=== PATIENT | male | born 1955 | race Caucasian/White ===

== ENCOUNTER → 2018-02-13 15:19 | Outpatient (CLI) | payer OTHER, SELFPAY ==
[2018-02-13 17:12] LABS: Anion Gap 7 (5-15); BUN 24 mg/dL (7-18); BUN/Creat Ratio 16.1 RATIO (10-20); Calcium,Total 8.6 mg/dL (8.5-10.1); Chloride 109 mmol/L (98-107); Creatinine, Serum 1.49 mg/dL (0.70-1.30); EST Glomerular Filtration Rate 51 mL/min (>60); Est Glom Filt Rate - Afr Amer 62 mL/min (>60); Glucose 73 mg/dL (74-106); Sodium Level 143 mmol/L (136-145)
[2018-02-13 17:21] LABS: Hemoglobin A1c 5.6 % (4.2-6.3)
== END ==
PROVIDERS: Family Provider Family Medicine; PCP Family Medicine; Visit Provider Nurse Practitioner Family
DX: I10 Essential (primary) hypertension (principal); R73.03 Prediabetes
CPT/HCPCS: 36415; 80048; 83036

== ENCOUNTER → 2018-03-13 16:57 | Outpatient (CLI) | payer OTHER, SELFPAY ==
[2018-03-13 17:59] LABS: Anion Gap 5 (5-15); BUN 15 mg/dL (7-18); BUN/Creat Ratio 10.7 RATIO (10-20); Calcium,Total 8.6 mg/dL (8.5-10.1); Chloride 109 mmol/L (98-107); EST Glomerular Filtration Rate 55 mL/min (>60); Est Glom Filt Rate - Afr Amer 66 mL/min (>60); Glucose 64 mg/dL (74-106); Potassium 3.9 mmol/L (3.5-5.1); Sodium Level 141 mmol/L (136-145)
== END ==
PROVIDERS: Family Provider Family Medicine; PCP Family Medicine; Visit Provider Nurse Practitioner Family
DX: I10 Essential (primary) hypertension (principal); R79.89 Other specified abnormal findings of blood chemistry
CPT/HCPCS: 36415; 80048

== ENCOUNTER → 2019-03-19 | Outpatient (CLI) | payer OTHER, SELFPAY ==
[2019-03-19 10:58] LABS: Anion Gap 5 (5-15); BUN 10 mg/dL (7-18); BUN/Creat Ratio 7.1 RATIO (10-20); Calcium,Total 8.4 mg/dL (8.5-10.1); Chloride 109 mmol/L (98-107); Cholesterol 140 mg/dL (200); EST Glomerular Filtration Rate 55 mL/min (>60); Est Glom Filt Rate - Afr Amer 66 mL/min (>60); Glucose 113 mg/dL (74-106); High Density Lipoprotein 25 mg/dL; Potassium 3.9 mmol/L (3.5-5.1); Sodium Level 138 mmol/L (136-145); Triglycerides 256 mg/dL; Very Low Density Lipoprotein 51 mg/dL (5-40)
[2019-03-19 11:18] LABS: Hemoglobin A1c 6.2 % (4.2-6.3)
== END | disposition home or self-care (01) ==
LOC: LAB.FUTURE 09:08
PROVIDERS: Family Provider Family Medicine; PCP Family Medicine; Referring Provider Nurse Practitioner Family; Visit Provider Nurse Practitioner Family
DX: I10 Essential (primary) hypertension (principal); R73.03 Prediabetes; E66.01 Morbid (severe) obesity due to excess calories
CPT/HCPCS: 36415; 80048; 80061; 83036

== ENCOUNTER → 2019-08-18 08:35 | Outpatient (CLI) | payer OTHER, SELFPAY ==
[2019-08-18 10:37] LABS: Hematocrit 43.7 % (40-54); Hemoglobin 15.2 g/dL (13.0-16.5); Mean Corp Hgb Conc 34.8 g/dL (32-36); Mean Corpuscular Hgb 31.8 pg (27.0-32.0); Mean Corpuscular Volume 91.4 fL (80-94); Mean Platelet Vol. 10.6 fl (6.2-12.0); Platelet Count 206 K/mm3 (150-450); RBC Distribution Width CV 12.3 % (11.6-14.6); RBC Distribution Width SD 41.1 fl (35.1-43.9); Red Blood Count 4.78 M/mm3 (4.6-6.2); White Blood Count 6.7 K/mm3 (4.4-11.0)
[2019-08-18 11:02] LABS: Cholesterol 183 mg/dL (200); High Density Lipoprotein 27 mg/dL; Triglycerides 235 mg/dL; Very Low Density Lipoprotein 47 mg/dL (5-40)
== END ==
LOC: LABSPEC 08:41 → LAB 08:55
PROVIDERS: Family Provider Family Medicine; PCP Family Medicine; Referring Provider Family Medicine; Visit Provider Family Medicine
DX: Z79.899 Other long term (current) drug therapy (principal); E66.01 Morbid (severe) obesity due to excess calories
CPT/HCPCS: 36415; 80061; 85027

== ENCOUNTER → 2020-03-24 | Outpatient (CLI) | payer OTHER, SELFPAY ==
[2020-03-24 08:20] LABS: Hemoglobin A1c 5.8 % (3.8-5.6)
[2020-03-24 08:22] LABS: AST(SGOT) 15 U/L (15-37); Alanine Aminotransfer ALT/SGPT 24 U/L (16-61); Albumin, Serum 3.7 g/dL (3.2-5.0); Alkaline Phosphatase 113 U/L (45-117); Anion Gap 4 (5-15); BUN 16 mg/dL (7-18); BUN/Creat Ratio 10.3 RATIO (10-20); Calcium,Total 8.4 mg/dL (8.5-10.1); Chloride 110 mmol/L (98-107); Cholesterol 162 mg/dL (200); Creatinine, Serum 1.55 mg/dL (0.70-1.30); EST Glomerular Filtration Rate 48 mL/min (>60); Est Glom Filt Rate - Afr Amer 59 mL/min (>60); Globulin 3.8 g/dL (2.2-4.2); Glucose 109 mg/dL (74-106); High Density Lipoprotein 25 mg/dL; Protein, Total 7.5 g/dL (6.4-8.2); Sodium Level 141 mmol/L (136-145); Triglycerides 207 mg/dL; Very Low Density Lipoprotein 41 mg/dL (5-40)
== END | disposition home or self-care (01) ==
LOC: LAB 07:41
PROVIDERS: PCP Family Medicine; Referring Provider Family Medicine; Visit Provider Family Medicine
DX: R73.03 Prediabetes (principal); E78.5 Hyperlipidemia, unspecified
CPT/HCPCS: 36415; 80053; 80061; 83036

== ENCOUNTER 2020-06-10 17:17 | Observation (INO) | payer OTHER, SELFPAY ==
[2020-06-10] VITALS (11 sets, daily range): BP systolic 118–166; BP diastolic 57–98; PULSE 54–69; RESP 14–19; TEMP 36.4–37.1; O2SAT 98–100; BMI 38.2; BMI 40.4; BMI 40.0
--- NOTE | 2020-06-10 17:24 | EKG12_ITS ---
Test Reason : NEURO SYMPTOMS Blood Pressure : / mmHG Vent. Rate : 056 BPM Atrial Rate : 056 BPM P-R Int : 166 ms QRS Dur : 078 ms QT Int : 438 ms P-R-T Axes : 052 -07 025 degrees QTc Int : 422 ms Sinus bradycardia Otherwise normal ECG Confirmed by TIMOTHY GABRIEL, CODY ([id number]), web content editor RACIEL YEAGER ([id number]) on 06/15/2020 1:45:55 PM Referred By: MAINOR Confirmed By:MARNIE AGUIRRE MD
--- NOTE | 2020-06-10 17:24 | CT_ITS ---
STUDY: CT BRAIN WITHOUT CONTRAST REASON FOR EXAM: Male, 65 years old. Stroke trouble with balance left-sided weakness RADIATION DOSAGE (If Supplied By Facility): CTDIvol = ( 44.99 ) mGy, DLP = ( 846.73 ) mGycm TECHNIQUE: Transaxial CT imaging of the brain was performed without administration of intravenous contrast material. Individualized dose optimization techniques were used for this CT. COMPARISON: For June 2011 FINDINGS: There is a small elongated hypodensity in the right frontal parasagittal posterior subcortical white matter, too small to reliably characterize. Remainder of the brain is intact. There is no mass effect, acute intracranial hemorrhage, extra parenchymal fluid collections, hydrocephalus or herniation. The skull is intact. Right maxillary sinus is opacified. CT/Brain/Head without Contrast IMPRESSION: 1. Right frontal subcortical white matter hypodensity, probably ischemia, unknown age. This can be acute or chronic. Electronically Signed: Eleni Carter, at 18:26 EDT Tel , Service support ,
--- NOTE | 2020-06-10 17:24 | CT_ITS ---
STUDY: CTA HEAD AND NECK WITH CONTRAST REASON FOR EXAM: Male, 65 years old. LT SIDED WEAKNESS,TROUBLE WITH BALANCE X 3 DAYS -- HX:HTN RADIATION DOSAGE (If Supplied By Facility): CTDIvol = ( 24.77 ) mGy, DLP = ( 795.17 ) mGycm TECHNIQUE: CT angiography was performed with a multi-detector CT scanner. Data acquisition was obtained from the skull base through the vertex following intravenous administration of IV 100mL Isovue-370. MIP images were reconstructed from the axial data set. Post-processing of the angiographic images was performed, with multiplanar reformation and 3D reconstruction. Individualized dose optimization techniques were used for this CT. COMPARISON: No relevant priors. FINDINGS: Normal bilateral petrous carotid arteries. Normal right cavernous carotid artery with a normal supraclinoid bifurcation. Normal left cavernous carotid artery with a normal supraclinoid bifurcation. Normal right A1 segments of the anterior cerebral artery. Normal left A1 segments of the anterior cerebral artery. Normal intact anterior communicating artery (ACOM). Normal bilateral A2 segments of the anterior cerebral arteries. Normal right M1 and M2 segments of the middle cerebral arteries, with a normal M1 bifurcation. Normal left M1 and M2 segments of the middle cerebral arteries, with a normal M1 bifurcation. Normal right posterior communicating artery (PCOM). Normal left posterior communicating artery (PCOM). Normal bilateral vertebral arteries. Normal basilar artery with a normal basilar bifurcation. The visualized bilateral superior cerebellar (SCA) arteries are normal. Normal bilateral P1, P2 and visualized P3 segments of the posterior cerebral arteries. There is no demonstrated aneurysm of the [place]. There is no demonstrated abnormality of the visualized brain. AORTIC ARCH: Aortic arch has a bovine branching pattern.. Normal origins of the brachiocephalic, left common carotid, and left subclavian arteries. RIGHT CAROTID ARTERIES: Normal right common carotid artery (CCA). Normal right common carotid bulb. Normal origin of the right internal carotid (ICA) artery without a hemodynamically significant stenosis. Normal visualized cervical portion of the right internal carotid artery. Normal origin of the right external carotid artery (ECA). LEFT CAROTID ARTERIES: Normal left common carotid artery (CCA). Normal left common carotid bulb. Normal origin of the left internal carotid (ICA) artery without a hemodynamically significant stenosis. Normal visualized cervical portion of the left internal carotid artery. Normal origin of the left external carotid artery (ECA). VERTEBRAL ARTERIES: Normal bilateral vertebral arteries. Left maxillary and left ethmoid sinuses are opacified. Remainder of the soft tissues of the neck are intact. CT/CTA Head AND Neck W/ Contrast IMPRESSION: Normal CTA Head and neck with contrast. Electronically Signed: Eleni Carter, at 19:15 EDT Tel , Service support ,
--- NOTE | 2020-06-10 17:33 | ED.DCSUM_ITS ---
History of Present Illness Chief Complaint: Neuro S/Sx Informant: Patient Onset: Days Context: Gradual Onset Timing: Intermittent Current Severity: Moderate Maximum Severity: Moderate Narrative: The patient is a 65-year-old male with medical history significant for hypertension remote smoking that presents to the emergency department with intermittent slurred speech and left foot weakness. 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 He states sometimes, he will have difficulty with his speech. He states over the past week, however this is changed. He states that he has had points where he will feel like his left foot is clumsy. He states he tries to walk and he cannot feel like he finds it in space. He states he also has had intermittent tingling in his left face and the left arm. He states it will last for an hour and then resolved. Is been going on since Friday. He states it happened again today and this is the reason that they c benoit in. He said no recent change in medications. He denies any traumas. He denies headache. Prior similar symptoms: No Recent Illness/Hospitalization: No Past Medical History - Allergies and Home Meds Allergies/Adverse Reactions: Allergies No Known Allergies Allergy (Verified 06/10/20 17:32) Prior records reviewed: Yes Past Medical History: - - Hypertension Surgical History: noncontributory Smoking Status: Former smoker Review of Systems General: Denies: Chills, Fever, Sweats Eyes: Denies: Visual changes - bilaterally, Diplopia ENT: Denies: Rhinorrhea, Sore throat Cardiovascular: Denies: Chest pain, Palpitations Respiratory: Denies: Dyspnea, Cough, Dyspnea on exertion Gastrointestinal: Denies: Abdominal pain, Nausea, Vomiting, Diarrhea, Melena, Hematochezia Genitourinary: Denies: Dysuria, Hematuria, Frequency Musculoskeletal: Denies: Back pain, Extremity Pain Skin: Denies: Rash, Wounds Neurological: Denies: Headache, Weakness, Numbness Physical Exam Vital Signs/Narrative: Vital Signs Temp Pulse Resp BP 06/10/20 17:21 98.8 F 64 18 146/81 H Inital Vital Signs reviewed: Yes General: Well nourished, Well developed, No Acute Distress Head: Normocephalic, Atraumatic Eyes: Perrl, EOMI ENT: Moist mucous membranes, No rhinorrhea Neck: Supple, Nontender Cardiovascular: Regular rate, Regular rhythm, No murmurs Respiratory: No distress, CTA bilaterally, Chest nontender Abdomen: Soft, Nontender, Nondistended, Normal bowel sounds Back: Nontender, Normal Inspection Extremities: Nontender, No edema Skin: Normal color, No rash Neurological: Alert, Oriented x3, Cranial nerves II-XII grossly intact, Normal Strength, Normal Sensation, - - Ataxia of left lower extremity Psychological: Normal affect, Normal Mood Diagnostic/Tx/Re-eval Clinical Impression(s) from Imaging Studies Brain CT 06/10/20 17:24 IMPRESSION: 1. Right frontal subcortical white matter hypodensity, probably ischemia, unknown age. This can be acute or chronic. Electronically Signed: Eleni Carter, at 18:26 EDT Tel , Service support , Head/Neck CTA 06/10/20 17:24 IMPRESSION: Normal CTA Head and neck with contrast. Electronically Signed: Eleni Carter, at 19:15 EDT Tel , Service support , Chest X-Ray 06/10/20 17:50 IMPRESSION: Normal x-ray examination of the chest. Electronically Signed: Eleni Carter, at 18:26 EDT Tel , Service support , - Medical Decision Making The patient presents with strokelike symptoms. His symptoms been going on for 72 hours. He has an NIH of 1 for ataxia of the left lower extremity. Stroke team was not activated given the duration of the symptoms. Noncontrast head CT does demonstrate area of subacute ischemia on the right. CTA shows no large vessel occlusion. At this point, I do for the patient is going require admission for stroke work-up. Patient was discussed with the hospitalist who agrees with plan of care. Impression 1. Acute ischemic stroke ED Disposition - Plan for ED Patient:
[2020-06-10 17:35] LABS: Bedside Glucose 113 mg/dL (70-110)
--- NOTE | 2020-06-10 17:50 | RAD_ITS ---
STUDY: X-RAY CHEST REASON FOR EXAM: Male, 65 years old. NEURO, PT C/O LEFT LEG WEAKNESS AND ISSUES WITH SPEECH SINCE FRIDAY TECHNIQUE: Frontal view of the chest COMPARISON: 17 June 2011 FINDINGS: The lungs are clear and expanded. There is no demonstrated pleural abnormality. Normal size heart. Normal mediastinum and lópez. Normal visualized pulmonary arteries. Normal visualized aortic arch and descending thoracic aorta. Normal visualized thoracic spine. Normal visualized ribs, clavicles, and shoulders. There is no demonstrated abnormality of the visualized soft tissue structures of the upper abdomen. RAD/Chest 1 View IMPRESSION: Normal x-ray examination of the chest. Electronically Signed: Eleni Carter, at 18:26 EDT Tel , Service support ,
[2020-06-10] MEDS: 0.9% Normal Saline 1,000 ML 100 ML IV (17:59)
[2020-06-10 18:12] LABS: Absolute Lymphocyte Count 2.12 X10^3/uL (0.83-4.51); Basophil# 0.06 X10^3/uL; Basophil% 0.7 % (0-1); Eosinophil# 0.33 X10^3/uL; Hematocrit 41.8 % (40-54); Hemoglobin 14.4 g/dL (13.0-16.5); Lymphocyte # 2.12 X10^3/ul (4.0); Lymphocyte % 25.6 % (19-41); Mean Corp Hgb Conc 34.4 g/dL (32-36); Mean Corpuscular Hgb 31.3 pg (27.0-32.0); Mean Corpuscular Volume 90.9 fL (80-94); Mean Platelet Vol. 10.5 fl (6.2-12.0); Monocyte# 0.77 X10^3/uL; Monocyte% 9.3 % (0-10); NRBC Flagged by Analyzer 0 % (0-5); Neutrophil # 4.98 X10^3/uL (2.7-7.7); Platelet Count 210 K/mm3 (150-450); RBC Distribution Width CV 12.3 % (11.6-14.6); RBC Distribution Width SD 40.1 fl (35.1-43.9); White Blood Count 8.3 K/mm3 (4.4-11.0)
[2020-06-10 18:23] LABS: Anion Gap 4 (5-15); BUN 14 mg/dL (7-18); BUN/Creat Ratio 9.9 RATIO (10-20); Calcium,Total 8.8 mg/dL (8.5-10.1); Chloride 110 mmol/L (98-107); Creatinine, Serum 1.42 mg/dL (0.70-1.30); EST Glomerular Filtration Rate 54 mL/min (>60); Est Glom Filt Rate - Afr Amer 65 mL/min (>60); Estimated Creatinine Clearance 51.51 ml/min; Glucose 99 mg/dL (74-106); Potassium 4.1 mmol/L (3.5-5.1); Sodium Level 141 mmol/L (136-145)
[2020-06-10 18:26] LABS: Partial Thromboplast Time 27.1 Seconds (24.1-36.2); Prothrombin Time (Protime)PT. 12.6 SECONDS (11.7-14.9)
--- NOTE | 2020-06-10 20:05 | HP.PCM_ITS ---
History of Present Illness Date of Admission: 06/10/20 Chief Complaint: Right leg weakness The patient is a 65 year old M with a PMH as below who presents with right leg weakness for the last 3 days, it appears he told the ER that it was a left leg weakness. He also has intermittent slurred speech, but this appears to be somewhat normal given his history of Dickens's palsy. Denies any upper extremity weakness and the weakness is focal to the left leg. CT of the brain was unremarkable, and CTA of the head and neck in the ER was also normal. The fact that he is 3 days out from onset of symptoms he does not qualify for any TPA. His NIH is between a 1 and 2 depending on the speech issue which appears to be chronic. CBC was unremarkable, BMP had a creatinine of 1.42 which is baseline. Past Medical History Past Medical History (Chronic Problems): Chronic Problems Former smoker (Chronic) Hypertension (Chronic) Obesity (Chronic) Allergies No Known Allergies Allergy (Verified 06/10/20 17:32) Home Medications: Ambulatory Orders Medication Instructions Recorded Amlodipine [Norvasc] 5 mg PO DAILY 06/10/20 Aspirin [Aspirin, Baby] 81 mg PO DAILY@0800 06/10/20 Gabapentin [Neurontin] 300 mg PO PRN PRN 06/10/20 Glucosamine HCl 1,500 mg PO DAILY 06/10/20 Losartan Potassium [Cozaar] 100 mg PO DAILY 06/10/20 Mv-Min/Vit C/Glut/Lysine/Hb124 1 ea PO DAILY 06/10/20 [Immune Support Chewable Tablet] Sildenafil Citrate [Viagra] 100 mg PO PRN PRN 06/10/20 Surgical History: appendectomy Smoking Status: Former smoker Tobacco Use: Cigarettes Alcohol: None Drugs: None - *Family History Maternal History Items: Cancer Paternal History Items: Heart Disease, Hypertension Review of Systems Constitutional: Denies: Chills, Fever, Weight Change HEENT: Denies: Head Aches, Sinus Congestion, Sinus Drainage Cardiovascular: Denies: Chest Pain, Palpitations Respiratory: Denies: Cough, Shortness of breath at rest, Sputum production Gastrointestinal: Denies: Abdominal Pain, Nausea, Vomiting Genitourinary: Denies: Dysuria Musculoskeletal: Denies: Joint Pain, Joint Tenderness Skin: Denies: Rash, Wounds Neurological: Denies: Focal weakness, Numbness, Tingling Psychiatric: Denies: Anxiety, Depression Hematologic/ Lymphatic: Denies: Easy Bruising, Easy Bleeding VTE Information - Inpt Only VTE Present on Admission: No - Physical Exam Vitals/I&O's: Vital Signs Temp Pulse Resp BP Pulse Ox 98.6 F 63 14 119/66 98 06/10/20 19:30 06/10/20 20:00 06/10/20 20:00 06/10/20 20:00 06/10/20 20:00 Oxygen Delivery Method Room Air Weight: 266 lb 5.094 oz Body Mass Index (BMI) 40.4 Finger Stick Blood Glucose 113 General: Alert, Oriented x3, Cooperative, No apparent distress HEENT: Atraumatic, PERRLA, EOMI, Normocephalic Oral: Moist Mucosa Neck: Supple, No JVD Lungs: Clear to auscultation, Normal air movement, No rhonchi, No wheeze, No rales Cardiovascular: Regular rate, Regular Rhythm, Normal S1, Normal S2, No murmurs Abdomen: Soft, Non Tender, Non-Distended, No Hepato-splenomegaly Extremities: No edema, Capillary Refill Less than 3 Seconds Skin: No rashes, No breakdown Neurological: Cranial nerves II-XII grossly intact, Deep Tendon Reflexes 2+/4 and Symmetrical, Neuro grossly intact, Motor Exam 5/5 strength throughout, Sensory exam intact to light touch and pain Psych/Mental Status: Normal Affect, Appropriate Laboratory Results 06/10/20 17:26: POC Glucose 113 H 06/10/20 17:30: WBC 8.3, RBC 4.60, Hgb 14.4, Hct 41.8, MCV 90.9, MCH 31.3, MCHC 34.4, RDW Std Deviation 40.1, RDW Coeff of Astrid 12.3, Plt Count 210, MPV 10.5, Immature Gran % (Auto) 0.400, Neut % (Auto) 60.0, Lymph % (Auto) 25.6, [place] % (Auto) 9.3, Eos % (Auto) 4.0, Baso % (Auto) 0.7, Absolute Neuts (auto) 5.0, Ab solute Lymphs (auto) 2.12, Nucleated RBC % 0 06/10/20 17:30: PT 12.6, INR 1.0, APTT 27.1 06/10/20 17:30: Sodium 141, Potassium 4.1, Chloride 110 H, Carbon Dioxide 27.0, Anion Gap 4 L, BUN 14, Creatinine 1.42 H, Estim Creat Clear Calc 51.51, Est GFR (MDRD) Af Amer 65, Est GFR (MDRD) Non-Af 54 L, BUN/Creatinine Ratio 9.9 L, Glucose 99, Calcium 8.8, Troponin I < 0.015 Current Medications Sodium Chloride () 1,000 mls @ 100 mls/hr IV .Q10H ONE Stop: 06/11/20 03:23 Last Admin: 06/10/20 17:59 Dose: 100 mls/hr Documented by: Iopamidol (Contrast Allergy Check) 0 ml IV X1 AB Labetalol HCl (Trandate) 20 mg IV X1 PRN PRN Reason: Blood Pressure Assessment/Plan 1. CVA versus TIA/HTN/morbid obesity -We will obtain an echo as well as an MRI in the morning, CT of the brain and CT of the head and neck are unremarkable -PT/OT as well as speech evaluation -He is already taking an aspirin therefore we will add Plavix and statin -We will hold his Norvasc and his losartan to allow for permissive hypertension -BMI of 40, discussed weight loss strategies 2. History of Dickens's palsy -He states that he has intermittent flareups -He takes gabapentin as needed DVT: Heparin OBSV E&M: [id number] Initial observation care L2
--- NOTE | 2020-06-10 20:47 | ECHOCS_ITS ---
Reason For Study: TIA/CVA Procedure This was a 2D Doppler, Color Flow transthoracic echocardiogram. Exam performed portable in patient room. Left Ventricle Normal LV size. Left ventricular systolic function is normal. The estimated ejection fraction is 55 %. No regional wall motion abnormalities noted. Right Ventricle Normal RV size. Normal systolic function. Atria Normal left atrium. Normal right atrium. Bubble contrast study negative for right to left interatrial shunt. Mitral Valve Normal mitral valve. Tricuspid Valve Normal tricuspid valve. Aortic Valve The aortic valve is not well visualized. Pulmonic Valve The pulmonic valve is not well visualized. Great Vessels Normal aortic root. The pulmonary artery is normal size. Normal inferior vena cava. Pericardium/Pleural No pericardial effusion. Medication Diluted definity 2ml given slow IV push to enhance endocardial definition. Performed a rapid injection of agitated mix of 9 cc saline and 1cc air to assess for atrial septal defect. MMode/2D Measurements & Calculations LVIDd: 4.9 cm IVSd: 1.0 cm Ao root diam: 3.2 cm LVIDs: 3.4 cm LVPWd: 1.1 cm RVDd: 3.8 cm FS: 31.4 % LAV(MOD-bp): 46.6 ml LVAd ap4: 32.4 cm2 SV(MOD-sp4): 69.0 ml LAV(MOD-bp) Indexed: 20.3 ml/m2 EDV(MOD-sp4): 105.8 ml LAV(MOD-sp2): 49.4 ml EDV(sp4-el): 110.1 ml LAV(MOD-sp4): 41.8 ml LVAs ap4: 17.5 cm2 ESV(MOD-sp4): 36.8 ml ESV(sp4-el): 37.1 ml EF(MOD-sp4): 65.2 % EF(sp4-el): 66.3 % SV(sp4-el): 73.0 ml LA A4 area: 16.3 cm2 LA dimension(2D): 3.8 cm RA A4 area: 14.2 cm2 Time Measurements MV dec time: 0.23 sec Doppler Measurements & Calculations MV E max alverto: 91.4 cm/sec Lat Peak E' Alverto: 11.2 cm/sec Med Peak E' Alverto: 9.5 cm/sec MV A max alverto: 80.5 cm/sec E/E' lat: 8.2 E/E' med: 9.6 MV E/A: 1.1 Ao V2 max: 152.5 cm/sec LV V1 max: 90.8 cm/sec PA V2 max: 116.6 cm/sec Ao max P.3 mmHg LV V1 max P.3 mmHg PI end-d alverto: 100.7 cm/sec Interpretation Summary Normal LV size. Left ventricular systolic function is normal. The estimated ejection fraction is 55 %. Bubble contrast study negative for right to left interatrial shunt. Contrast injection was performed. Ordering Physician: Raymond Eric Referring Physician: KARLA MARADIAGA Performed By: Tiana Schmitt RDCS
[2020-06-10] MEDS: Heparin Injection (Vial) 5,000 UNIT/ML VIAL 5000 UNIT SC (21:40)
[2020-06-11] VITALS (12 sets, daily range): BP systolic 127–145; BP diastolic 76–85; PULSE 50–71; RESP 16; TEMP 36.3–36.8; O2SAT 92–100
[2020-06-11] MEDS: Atorvastatin Calcium 80 MG Tablet PO ×2 (00:17→20:55)
[2020-06-11] MEDS: Heparin Injection (Vial) 5,000 UNIT/ML VIAL 5000 UNIT SC ×3 (05:30→20:56)
[2020-06-11 06:42] LABS: Cholesterol 158 mg/dL (200); High Density Lipoprotein 24 mg/dL; Triglycerides 273 mg/dL; Very Low Density Lipoprotein 55 mg/dL (5-40)
[2020-06-11] MEDS: LORazepam 1 MG Tablet PO (09:39)
[2020-06-11] MEDS: Clopidogrel Bisulfate 75 MG Tablet PO (09:40)
--- NOTE | 2020-06-11 10:00 | MRI_ITS ---
STUDY: MRI BRAIN WITHOUT CONTRAST REASON FOR EXAM: Male, 65 years old. Slurred speech, evaluation for infarct TECHNIQUE: Standardized multiplanar fat and water weighted pulse sequences were obtained. COMPARISON: None. FINDINGS: Brain parenchyma is intact without focal lesions, mass effect, extra parenchymal fluid collections, hydrocephalus or herniation. Major vascular flow structures are intact. There are minor age related periventricular white matter changes. Craniocervical junction is unremarkable. MRI/Brain without Contrast IMPRESSION: 1. No acute infarct. 2. No acute findings. 3. Unremarkable brain. Electronically Signed: Eleni Carter, at 14:06 EDT Tel , Service support ,
--- NOTE | 2020-06-11 13:44 | PCM.PROGNOTE ---
<Daily uBrt NOTEMAN - Last Filed: 06/11/20 13:53> Subjective: Patient seen and examined. Denies further left lower extremity weakness or clumsiness. Denies speech changes or other neuro symptoms or focal deficits. - Physical Exam Vitals/I&O's: Vital Signs Temp Pulse Resp BP Pulse Ox 97.4 F L 55 L 16 136/77 H 99 06/11/20 13:00 06/11/20 13:00 06/11/20 13:00 06/11/20 13:00 06/11/20 13:00 Oxygen Delivery Method Room Air Weight: 263 lb 7.238 oz Body Mass Index (BMI) 40.0 Finger Stick Blood Glucose 113 Intake and Output for Last 24 Hours 06/09/20 06/10/20 06/11/20 23:59 23:59 23:59 Intake Total 100 / 100 1240 / 1240 Balance 100 / 100 1240 / 1240 General: Alert, Oriented x3, Cooperative HEENT: Atraumatic, PERRLA, EOMI, Normocephalic Neck: Supple, No JVD, Negative Carotid Bruits Lungs: Clear to auscultation, Normal air movement Cardiovascular: Regular rate, No murmurs Abdomen: Bowel Sounds Present, Soft, Non Tender Extremities: No clubbing, No cyanosis, No edema, Capillary Refill Less than 3 Seconds Skin: No rashes, No breakdown Musculoskeletal: No Tenderness to Palpation of Joints or Extremities Neurological: Cranial nerves II-XII grossly intact, Neuro grossly intact Psych/Mental Status: Normal Affect, Appropriate Laboratory Results 06/10/20 17:26: POC Glucose 113 H 06/10/20 17:30: WBC 8.3, RBC 4.60, Hgb 14.4, Hct 41.8, MCV 90.9, MCH 31.3, MCHC 34.4, RDW Std Deviation 40.1, RDW Coeff of Astrid 12.3, Plt Count 210, MPV 10.5, Immature Gran % (Auto) 0.400, Neut % (Auto) 60.0, Lymph % (Auto) 25.6, Forsyth % (Auto) 9.3, Eos % (Auto) 4.0, Baso % (Auto) 0.7, Absolute Neuts (auto) 5.0, Absolute Lymphs (auto) 2.12, Nucleated RBC % 0 06/10/20 17:30: PT 12.6, INR 1.0, APTT 27.1 06/10/20 17:30: Sodium 141, Potassium 4.1, Chloride 110 H, Carbon Dioxide 27.0, Anion Gap 4 L, BUN 14, Creatinine 1.42 H, Estim Creat Clear Calc 51.51, Est GFR (MDRD) Af Amer 65, Est GFR (MDRD) Non-Af 54 L, BUN/Creatinine Ratio 9.9 L, Glucose 99, Calcium 8.8, Troponin I < 0.015 06/11/20 05:20: Triglycerides 273 H, Cholesterol 158, LDL Cholesterol 79, VLDL Cholesterol 55 H, HDL Cholesterol 24 L Current Medications Atorvastatin Calcium (Lipitor) 80 mg PO QHS [facility] Last Admin: 06/11/20 00:17 Dose: 80 mg Documented by: Clopidogrel Bisulfate (Plavix) 75 mg PO DAILY [facility] Last Admin: 06/11/20 09:40 Dose: 75 mg Documented by: Heparin Sodium (Porcine) (Heparin Na) 5,000 unit SC Q8 [facility] Last Admin: 06/11/20 13:27 Dose: 5,000 unit Documented by: Hydralazine HCl (Apresoline Iv) 5 mg IV Q30M PRN PRN Reason: to maintain BP goals Sodium Chloride () 250 mls @ 15 mls/hr IV .[id number] PRN PRN Reason: Saline Flush Sodium Chloride () 250 mls @ 15 mls/hr IV .[id number] PRN PRN Reason: Additional IVPB Infusion Labetalol HCl (Trandate) 10 - 20 mg IV Q10M PRN PRN PRN Reason: to Maintain BP Goals Lorazepam (Ativan) 1 mg PO X1 [facility] Stop: 06/11/20 23:59 Last Admin: 06/11/20 09:39 Dose: 1 mg Documented by: Sodium Chloride () 10 - 40 ml IV UD PRN PRN Reason: SALINE FLUSH Medical Necessity - Tobacco Use Smoking Status: Former smoker Tobacco Use: Cigarettes Assessment/Plan 1. Probable CVA-left lower extremity weakness and speech changes prior to admission. Brain CT shows right frontal white matter hypodensity, probable ischemia. Unknown if acute or chronic. MRI of brain pending. CTA of head and neck normal. PT/OT/ST. Continue aspirin, Plavix, statin. SOC consult pending MRI. Obtain echo in a.m. Check hemoglobin A1c. 2. Hypertension-permissive given #1. Losartan, amlodipine on hold. 3. Hyperlipidemia-continue high-dose statin. 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 5. Chronic kidney disease stage III-appears at baseline. 6. Obesity-encouraged diet and lifestyle modifications. DVT prophylaxis-heparin subcu This patient was seen by AMARI Tovar under the supervision of Dr. Justice. <Baljinder Justice - Last Filed: 06/11/20 14:28> Subjective: Patient seen and examined. Patient has history of left lower extremity dragging, clumsy gait and leaning towards left side for 3 days. As per patient, his and coworkers are concerned for slow amnesia for few years. Objective: Physical exam General: Alert, Oriented x3, Cooperative HEENT: Atraumatic, PERRLA, EOMI, Normocephalic Oral: No Gingival or Mucosal Lesions/ Ulcerations Neck: Supple, No JVD, Negative Carotid Bruits Lungs: Air entry equal bilaterally. No crepitation/rhonchi Cardiovascular: Regular rate, Regular Rhythm, Normal S1, Normal S2, No murmurs Abdomen: Bowel Sounds Present, Soft, Non Tender, Non-Distended : No renal angle tenderness. No suprapubic tenderness. Extremities: No edema, Capillary Refill Less than 3 Seconds Skin: No rashes, No breakdown Musculoskeletal: No Tenderness to Palpation of Joints or Extremities Neurological: Cranial nerves II-XII grossly intact, Deep Tendon Reflexes 2+/4 and Symmetrical, Neuro grossly intact. NIH stroke scale 0 Psych/Mental Status: Normal Affect, Appropriate. - Physical Exam Vitals/I&O's: Vital Signs Temp Pulse Resp BP Pulse Ox 97.4 F L 55 L 16 136/77 H 99 06/11/20 13:06/11/20 13:00 06/11/20 13:06/11/20 13:06/11/20 13:00 Oxygen Delivery Method Room Air Weight: 263 lb 7.238 oz Body Mass Index (BMI) 40.0 Finger Stick Blood Glucose 113 Intake and Output for Last 24 Hours 06/09/20 06/10/20 06/11/20 23:59 23:59 23:59 Intake Total 100 / 100 1240 / 1240 Balance 100 / 100 1240 / 1240 Laboratory Results 06/10/20 17:26: POC Glucose 113 H 06/10/20 17:30: WBC 8.3, RBC 4.60, Hgb 14.4, Hct 41.8, MCV 90.9, MCH 31.3, MCHC 34.4, RDW Std Deviation 40.1, RDW Coeff of Astrid 12.3, Plt Count 210, MPV 10.5, Immature Gran % (Auto) 0.400, Neut % (Auto) 60.0, Lymph % (Auto) 25.6, Forsyth % (Auto) 9.3, Eos % (Auto) 4.0, Baso % (Auto) 0.7, Absolute Neuts (auto) 5.0, Absolute Lymphs (auto) 2.12, Nucleated RBC % 0 06/10/20 17:30: PT 12.6, INR 1.0, APTT 27.1 06/10/20 17:30: Sodium 141, Potassium 4.1, Chloride 110 H, Carbon Dioxide 27.0, Anion Gap 4 L, BUN 14, Creatinine 1.42 H, Estim Creat Clear Calc 51.51, Est GFR (MDRD) Af Amer 65, Est GFR (MDRD) Non-Af 54 L, BUN/Creatinine Ratio 9.9 L, Glucose 99, Calcium 8.8, Troponin I < 0.015 06/11/20 05:20: Triglycerides 273 H, Cholesterol 158, LDL Cholesterol 79, VLDL Cholesterol 55 H, HDL Cholesterol 24 L 06/11/20 05:20: Hemoglobin A1c Pending Current Medications Aspirin (Ecotrin) 81 mg PO DAILY@0800 [facility] Atorvastatin Calcium (Lipitor) 80 mg PO QHS [facility] Last Admin: 06/11/20 00:17 Dose: 80 mg Documented by: Clopidogrel Bisulfate (Plavix) 75 mg PO DAILY [facility] Last Admin: 06/11/20 09:40 Dose: 75 mg Documented by: Heparin Sodium (Porcine) (Heparin Na) 5,000 unit SC Q8 [facility] Last Admin: 06/11/20 13:27 Dose: 5,000 unit Documented by: Hydralazine HCl (Apresoline Iv) 5 mg IV Q30M PRN PRN Reason: to maintain BP goals Sodium Chloride () 250 mls @ 15 mls/hr IV .[id number] PRN PRN Reason: Saline Flush Sodium Chloride () 250 mls @ 15 mls/hr IV .[id number] PRN PRN Reason: Additional IVPB Infusion Labetalol HCl (Trandate) 10 - 20 mg IV Q10M PRN PRN PRN Reason: to Maintain BP Goals Lorazepam (Ativan) 1 mg PO X1 AB Stop: 06/11/20 23:59 Last Admin: 06/11/20 09:39 Dose: 1 mg Documented by: Sodium Chloride () 10 - 40 ml IV UD PRN PRN Reason: SALINE FLUSH Assessment/Plan This patient was seen in conjunction with Daily RUDOLPH. I have independently interviewed and examined the patient and reviewed pertinent history, examination findings, laboratory and plan of management. I have reviewed the note and agree with the documented findings with the few additional points. In brief, patient is admitted for left lower extremity gait incoordination/clumsy gait. CT brain shows possible right frontal brain white matter possible ischemia. MRI brain shows no acute infarct or acute finding. CTA head and neck with contrast reported normal. 2D echo pending. PT OT and speech evaluation in progress. Will get SOC neurology evaluation as there is discordant between CT brain report and MRI brain. The patient is on aspirin, Plavix, statin. A1c and B12 tomorrow a.m. Fasting profile shows triglyceride 273, LDL 79. Blood pressure and glucose control. And also history of Idckens's palsy and is on as needed gabapentin. Other comorbidities as mentioned above I have discussed my assessment with Daily RUDOLPH and orders have been reviewed. Clinical Impression(s) from Imaging Studies Brain CT 06/10/20 17:24 IMPRESSION: 1. Right frontal subcortical white matter hypodensity, probably ischemia, unknown age. This can be acute or chronic. Electronically Signed: Eleni Carter, at 18:26 EDT Tel , Service support , Head/Neck CTA 06/10/20 17:24 IMPRESSION: Normal CTA Head and neck with contrast. Chest X-Ray 06/10/20 17:50 IMPRESSION: Normal x-ray examination of the chest. Brain MRI 06/11/20 10:00 IMPRESSION: 1. No acute infarct. 2. No acute findings. 3. Unremarkable brain. Inpatient E&M: 50324 Subs Hosp L2
[2020-06-11 14:34] LABS: Hemoglobin A1c 5.5 % (3.8-5.6)
--- NOTE | 2020-06-11 14:53 | TELEMED_ITS ---
SOC Telemed has confirmed receipt of a request for visit. This document confirms receipt of the order initiating the consult. To find the results of the consultation, please view the patient's reports for the scanned Telemed Consult.
[2020-06-12 03:00] VITALS: BP 124/75; PULSE 62; RESP 16; TEMP 36.8; O2SAT 98
[2020-06-12 03:05] VITALS: PULSE 59
[2020-06-12] MEDS: Heparin Injection (Vial) 5,000 UNIT/ML VIAL 5000 UNIT SC (05:27)
[2020-06-12 06:51] VITALS: PULSE 69
[2020-06-12 06:54] VITALS: O2SAT 95
[2020-06-12] MEDS: Aspirin E.C. 81 MG Tablet PO (08:28)
[2020-06-12] MEDS: Clopidogrel Bisulfate 75 MG Tablet PO (08:28)
[2020-06-12 08:34] VITALS: BP 130/61; PULSE 67; RESP 16; TEMP 36.3; O2SAT 99
[2020-06-12 08:43] LABS: Vitamin B12 307 pg/mL (211-911)
--- NOTE | 2020-06-12 10:53 | CASEMGMT ---
SW completed a PHQ 9 with patient as he may have had a TIA. He scored a 4 which indicates minimal Depression. He denied any need for counseling resources. Yumi BILLINGSLEY MSW
--- NOTE | 2020-06-12 11:06 | PCM.DC ---
You will use the following diet at home:: Cardiac Discharge Activity: Return to Normal Activity Call your doctor if you observe: Shortness of breath, Dizziness, Fainting spells, Chest pain Allergies/Adverse Reactions: Allergies No Known Allergies Allergy (Verified 06/10/20 17:32) Medications to take at Discharge Amlodipine [Norvasc] 5 mg PO DAILY 06/10/20 Aspirin [Aspirin, Baby] 81 mg PO DAILY@0800 06/10/20 Gabapentin [Neurontin] 300 mg PO PRN PRN 06/10/20 Glucosamine HCl 1,500 mg PO DAILY 06/10/20 Losartan Potassium [Cozaar] 100 mg PO DAILY 06/10/20 Mv-Min/Vit C/Glut/Lysine/Hb124 [Immune Support Chewable Tablet] 1 ea PO DAILY 06/10/20 Sildenafil Citrate [Viagra] 100 mg PO PRN PRN 06/10/20 Atorvastatin Calcium 40 mg PO QHS #30 tab 06/12/20 Clopidogrel Bisulfate [Plavix] 75 mg PO DAILY #21 tab 06/12/20 The following prescriptions were given: Atorvastatin Calcium 40 mg PO QHS #30 tab Transmission Status: Pending to [facility] Clopidogrel Bisulfate [Plavix] 75 mg PO DAILY #21 tab Transmission Status: Pending to [id number] Primary Care Physician: Kuldeep Burns MD [Primary Care Provider] - Please follow up with your Primary Care Physician in: 1 Week Test Results: Test results from this visit will be discussed in further detail at your follow-up appointment, if applicable. Please Follow Up With: Giles Fajardo MD When: 2-4 Weeks Proposed Discharge Date: 06/12/20
--- NOTE | 2020-06-12 11:20 | DS.PCM_ITS ---
<Daily Burt PACKAGE DRIER - Last Filed: 06/12/20 11:28> Discharge Date and Diagnosis Date of Admission: 06/10/20 Date of Discharge: 06/12/20 - Primary Discharge Diagnosis Acute Problems: 1. TIA 2. Hypertension 3. Hyperlipidemia 4. History of Dickens's palsy 5. Chronic kidney disease stage III 6. Obesity - Secondary Discharge Diagnosis Chronic Problems: Chronic Problems Former smoker (Chronic) Hypertension (Chronic) Obesity (Chronic) Hospital Course and Treatment Imaging Results: Diagnostic Data Brain CT 06/10/20 17:24 IMPRESSION: 1. Right frontal subcortical white matter hypodensity, probably ischemia, unknown age. This can be acute or chronic. Electronically Signed: Eleni Carter, at 18:26 EDT Tel , Service support , Head/Neck CTA 06/10/20 17:24 IMPRESSION: Normal CTA Head and neck with contrast. Electronically Signed: Eleni Carter, at 19:15 EDT Tel , Service support , Chest X-Ray 06/10/20 17:50 IMPRESSION: Normal x-ray examination of the chest. Electronically Signed: Eleni Carter, at 18:26 EDT Tel , Service support , Brain MRI 06/11/20 10:00 IMPRESSION: 1. No acute infarct. 2. No acute findings. 3. Unremarkable brain. Electronically Signed: Eleni Carter, at 14:06 EDT Tel , Service support , SOC Neurology Operations: None Procedures: 2-D Echocardiogram Summary of Care Provided: The patient is a 65 year old M admitted 06/10/2020 due to left leg weakness and speech changes. 1. TIA-left lower extremity weakness and speech changes prior to admission. CVA ruled out. Brain CT shows right frontal white matter hypodensity, probable ischemia. Unknown if acute or chronic. MRI of brain without acute findings. CTA of head and neck normal. Continue aspirin, Plavix, statin. Dual antiplatelet therapy for 21 days followed by aspirin 81 mg daily only. 30-day event monitor at discharge. Echocardiogram completed, report pending and will be reviewed prior to discharge. Follow-up with primary care physician in 1 week. Follow-up with neurology in 2 to 4 weeks. 2. Hypertension-continue home amlodipine, losartan regimen. 3. Hyperlipidemia-continue statin. 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 5. Chronic kidney disease stage III-appears at baseline. 6. Obesity-encouraged diet and lifestyle modifications. General: Alert, Oriented x3, Cooperative HEENT: Atraumatic, PERRLA, EOMI, Normocephalic Neck: Supple, No JVD, Negative Carotid Bruits Lungs: Clear to auscultation, Normal air movement Cardiovascular: Regular rate, No murmurs Abdomen: Bowel Sounds Present, Soft, Non Tender Extremities: No clubbing, No cyanosis, No edema, Capillary Refill Less than 3 Seconds Skin: No rashes, No breakdown Musculoskeletal: No Tenderness to Palpation of Joints or Extremities Neurological: Cranial nerves II-XII grossly intact, Neuro grossly intact Psych/Mental Status: Normal Affect, Appropriate Patient seen and examined prior to discharge. Physical assessment as noted above. Patient is stable for discharge with follow up recommendations as noted above. This patient was seen by AMARI Tovar under the supervision of Dr. Chu. - Physical Exam Vitals/I&O's: Vital Signs Temp Pulse Resp BP Pulse Ox 97.3 F L 67 16 130/61 H 99 06/12/20 08:34 06/12/20 08:34 06/12/20 08:34 06/12/20 08:34 06/12/20 08:34 Oxygen Delivery Method Room Air Weight: 263 lb 7.238 oz Body Mass Index (BMI) 40.0 Finger Stick Blood Glucose 113 Intake and Output for Last 24 Hours 06/10/20 06/11/20 06/12/20 23:59 23:59 23:59 Intake Total 100 / 100 1640 / 2040 400 / 400 Balance 100 / 100 1640 / 2040 400 / 400 Laboratory Results 06/11/20 05:20: Hemoglobin A1c 5.5 06/12/20 05:25: Vitamin B12 307 Current Medications Aspirin (Ecotrin) 81 mg PO DAILY@0800 [facility] Last Admin: 06/12/20 08:28 Dose: 81 mg Documented by: Atorvastatin Calcium (Lipitor) 80 mg PO QHS [facility] Last Admin: 06/11/20 20:55 Dose: 80 mg Documented by: Clopidogrel Bisulfate (Plavix) 75 mg PO DAILY [facility] Last Admin: 06/12/20 08:28 Dose: 75 mg Documented by: Heparin Sodium (Porcine) (Heparin Na) 5,000 unit SC Q8 [facility] Last Admin: 06/12/20 05:27 Dose: 5,000 unit Documented by: Hydralazine HCl (Apresoline Iv) 5 mg IV Q30M PRN PRN Reason: to maintain BP goals Sodium Chloride () 250 mls @ 15 mls/hr IV .[id number] PRN PRN Reason: Saline Flush Sodium Chloride () 250 mls @ 15 mls/hr IV .[id number] PRN PRN Reason: Additional IVPB Infusion Labetalol HCl (Trandate) 10 - 20 mg IV Q10M PRN PRN PRN Reason: to Maintain BP Goals Sodium Chloride () 10 - 40 ml IV UD PRN PRN Reason: SALINE FLUSH Discharge Diet: Low fat/ Low Cholesterol Discharge Activity: Return to Normal Activity Call your doctor if you observe: Shortness of breath, Dizziness, Fainting spells, Chest pain Home Medications: Medications to take at Discharge Amlodipine [Norvasc] 5 mg PO DAILY 06/10/20 Aspirin [Aspirin, Baby] 81 mg PO DAILY@0800 06/10/20 Gabapentin [Neurontin] 300 mg PO PRN PRN 06/10/20 Glucosamine HCl 1,500 mg PO DAILY 06/10/20 Losartan Potassium [Cozaar] 100 mg PO DAILY 06/10/20 Mv-Min/Vit C/Glut/Lysine/Hb124 [Immune Support Chewable Tablet] 1 ea PO DAILY 06/10/20 Sildenafil Citrate [Viagra] 100 mg PO PRN PRN 06/10/20 Atorvastatin Calcium 40 mg PO QHS #30 tab 06/12/20 Clopidogrel Bisulfate [Plavix] 75 mg PO DAILY #21 tab 06/12/20 Following Prescriptions Were Given to Patient: Atorvastatin Calcium 40 mg PO QHS #30 tab Transmission Status: Received by [facility] Clopidogrel Bisulfate [Plavix] 75 mg PO DAILY #21 tab Transmission Status: Received by [facility] Other Amb Orders: 30-Day Event Recorder [[facility]] Location: None Selected Primary Care Physician: Kuldeep Burns MD [Primary Care Provider] - Please follow up with your Primary Care Physician in: 1 Week Please Follow Up With: Giles Fajardo MD When: 2-4 Weeks Disposition: Home Minutes spent on discharge:: 35 Patient Condition:: Stable Medical Necessity - Tobacco Use Smoking Status: Former smoker Tobacco Use: Cigarettes Meaningful Use Info Meaningful Use Diagnoses (Choose all that apply): None applicable <Omdi Chu - Last Filed: 06/12/20 13:37> Discharge Date and Diagnosis - Secondary Discharge Diagnosis Chronic Problems: Chronic Problems Former smoker (Chronic) Hypertension (Chronic) Obesity (Chronic) Hospital Course and Treatment Operations: None Procedures: 2-D Echocardiogram Summary of Care Provided: Patient seen and examined independently. Data reviewed. I agree with the above note by the nurse practitioner. The patient is a 65 year old M presents with left foot numbness and right arm numbness. Patient underwent a stroke evaluation with an MRI of the brain which was negative for stroke. Patient was evaluated by [facility] tele-neurology who felt this could be TIA versus migraine variant. Patient will continue with clopidogrel, aspirin and a statin. Patient be on the dual antiplatelet therapy for 3 weeks and then to drop the aspirin. Patient will have 30-day event monitor. Discussed with the patient is that his leg numbness could be related with his back but I would not explain his right arm paresthesias. May consider further evaluation down the road but patient would likely require physical therapy before further imaging. [] - Physical Exam Vitals/I&O's: Vital Signs Temp Pulse Resp BP Pulse Ox 36.3 C L 67 16 130/61 H 99 06/12/20 08:34 06/12/20 08:34 06/12/20 08:34 06/12/20 08:34 06/12/20 08:34 Oxygen Delivery Method Room Air Weight: 119.5 kg Body Mass Index (BMI) 40.0 Finger Stick Blood Glucose 113 Intake and Output for Last 24 Hours 06/10/20 06/11/20 06/12/20 23:59 23:59 23:59 Intake Total 100 / 100 1640 / 2040 760 / 760 Balance 100 / 100 1639 / 2039 760 / 760 General: Alert, No apparent distress HEENT: Atraumatic, Normocephalic Oral: Moist Mucosa, No Gingival or Mucosal Lesions/ Ulcerations Psych/Mental Status: Normal Affect, Appropriate Laboratory Results 06/11/20 05:20: Hemoglobin A1c 5.5 06/12/20 05:25: Vitamin B12 307 Current Medications Aspirin (Ecotrin) 81 mg PO DAILY@0800 [facility] Last Admin: 06/12/20 08:28 Dose: 81 mg Documented by: Atorvastatin Calcium (Lipitor) 80 mg PO QHS [facility] Last Admin: 06/11/20 20:55 Dose: 80 mg Documented by: Clopidogrel Bisulfate (Plavix) 75 mg PO DAILY [facility] Last Admin: 06/12/20 08:28 Dose: 75 mg Documented by: Heparin Sodium (Porcine) (Heparin Na) 5,000 unit SC Q8 [facility] Last Admin: 06/12/20 05:27 Dose: 5,000 unit Documented by: Hydralazine HCl (Apresoline Iv) 5 mg IV Q30M PRN PRN Reason: to maintain BP goals Sodium Chloride () 250 mls @ 15 mls/hr IV .[id number] PRN PRN Reason: Saline Flush Sodium Chloride () 250 mls @ 15 mls/hr IV .[id number] PRN PRN Reason: Additional IVPB Infusion Labetalol HCl (Trandate) 10 - 20 mg IV Q10M PRN PRN PRN Reason: to Maintain BP Goals Sodium Chloride () 10 - 40 ml IV UD PRN PRN Reason: SALINE FLUSH Discharge Diet: Low fat/ Low Cholesterol Discharge Activity: Return to Normal Activity Call your doctor if you observe: Shortness of breath, Dizziness, Fainting spells, Chest pain Disposition: Home Patient Condition:: Stable Medical Necessity - Tobacco Use Smoking Status: Former smoker Tobacco Use: Cigarettes Meaningful Use Info Meaningful Use Diagnoses (Choose all that apply): None applicable OBSV E&M: 15302 Observation care discharge
--- NOTE | 2020-06-12 11:59 | PHA.DC.MC ---
Pharmacy Service has performed discharge medication reconciliation and counseling for this patient. The patient was counseled on the following discharge medications and changes in medications for homegoing were reviewed. 1. PLAVIX 2. LIPITOR The Reason for Use, instructions for use, and potential side effects were reviewed for all new medications. The patient's questions regarding all of their medications were answered. The patient was able to verbally demonstrate an understanding of their discharge medications. Home Medications Amlodipine [Norvasc] 5 mg PO DAILY 06/10/20 Aspirin [Aspirin, Baby] 81 mg PO DAILY@0800 06/10/20 Gabapentin [Neurontin] 300 mg PO PRN PRN 06/10/20 Glucosamine HCl 1,500 mg PO DAILY 06/10/20 Losartan Potassium [Cozaar] 100 mg PO DAILY 06/10/20 Mv-Min/Vit C/Glut/Lysine/Hb124 [Immune Support Chewable Tablet] 1 ea PO DAILY 06/10/20 Sildenafil Citrate [Viagra] 100 mg PO PRN PRN 06/10/20 Atorvastatin Calcium 40 mg PO QHS #30 tab 06/12/20 Clopidogrel Bisulfate [Plavix] 75 mg PO DAILY #21 tab 06/12/20 The patient's discharge medication list was reviewed for discrepancies and discrepancies were resolved.
== END 2020-06-12 11:13 | disposition home or self-care (01) ==
LOC: ED 18:04 → PCU 20:04
PROVIDERS: Internal Medicine; Nurse Practitioner Family; Admitting Provider Family Medicine; Emergency Provider Emergency Medicine; PCP Family Medicine
DX: G45.9 Transient cerebral ischemic attack, unspecified (principal); I12.9 Hypertensive chronic kidney disease with stage 1 through stage 4 chronic kidney disease, or unspecified chronic kidney disease; E78.5 Hyperlipidemia, unspecified; N18.3 Chronic kidney disease, stage 3 (moderate); R47.81 Slurred speech; E66.9 Obesity, unspecified; R27.0 Ataxia, unspecified; Z68.41 Body mass index [BMI] 40.0-44.9, adult; Z79.899 Other long term (current) drug therapy; Z79.82 Long term (current) use of aspirin; Z87.891 Personal history of nicotine dependence
CPT/HCPCS: 36415; 70450; 70496; 70498; 70551; 71045; 80048; 80061; 82607; 82962; 83036; 84484; 85025; 85610; 85730; 92610; 93005; 93306; 94762; 96360; 96361; 96372; 99218; 99285; J7030; Q9957; Q9967; A4216; C8929; G0378